=== PATIENT | male | born 1970 | race Caucasian/White ===

== ENCOUNTER 2019-11-19 13:34 | Emergency (ER) | payer OTHER, SELFPAY ==
[2019-11-19 13:42] VITALS: BP 147/96; PULSE 78; RESP 20; TEMP 36.7; O2SAT 99
--- NOTE | 2019-11-19 14:05 | ED.GENADULT ---
HPI - General Adult General Chief complaint: Eye Problems Stated complaint: left eye irritation Time Seen by Provider: 11/19/19 13:40 History of Present Illness HPI narrative: Patient is a 49-year-old male who presents ER with left eye redness. Reports yesterday he used using air to clean out a car. A friend then noticed his eye was red. He has no change in vision or hearing. No pain to his eye. No foreign body sensation. No clear or thick drainage. Does not wear corrective lenses or contacts. No additional concerns. Related Data Allergies Allergy/AdvReac Type Severity Reaction Status Date / Time ciprofloxacin [From Cipro] Allergy Anaphylactic Verified 07/23/19 10:07 Shock Penicillins Allergy Anaphylactic Verified 07/23/19 10:07 Shock Sulfa (Sulfonamide Allergy Swelling Verified 07/23/19 10:07 Antibiotics) Review of Systems Review of Systems: All systems reviewed & are unremarkable except as noted in HPI and below Eyes: Eyes: Denies blurry vision, Denies change in vision, Denies diplopia, Denies eye discharge, Denies irritation, Denies loss of vision and Denies eye pain PMFSH Past Medical History Medical History (Updated 11/19/19 @ 14:09 by Molina Giraldo MD) Arthritis Fibromyalgia Vertigo Surgical History Surgical History (Updated 07/23/19 @ 10:43 by Jose Wilson) No significant past surgical history Social History Social History (Updated 07/23/19 @ 10:43 by Jose Wilson) Smoking status: Never smoker Exam Narrative: Exam Narrative: GENERAL: Well-appearing, well-nourished, and in no acute distress. HEAD: Normocephalic, atraumatic. EYES: PERRLA and EOMI. left scleral subconjunctival hemorrhage abutting the lateral aspect of the cornea but no involvement of the cornea. Left eye viewed with magnification and fluorescein staining as well as tetracaine analgesia. There is no corneal abrasion or retained foreign body. ENT: Mucous membranes moist. NEURO: Alert and oriented x3. PSYCH: Normal mood and affect. Course Course Emergency Course: Discussed diagnosis. Discharge home. Patient is not on blood thinners. Vital Signs Vital signs: Vital Signs Temperature 98.0 F 11/19/19 13:42 Pulse Rate 78 11/19/19 13:42 Respiratory Rate 20 11/19/19 13:42 Blood Pressure 147/96 H 11/19/19 13:42 Pulse Oximetry 99 11/19/19 13:42 Temperature 98.0 F 11/19/19 13:42 Pulse Rate 78 11/19/19 13:42 Respiratory Rate 20 11/19/19 13:42 Blood Pressure 147/96 H 11/19/19 13:42 Pulse Oximetry 99 11/19/19 13:42 Medical Decision Making Vital Signs Vital Signs: Vital Signs Temperature 98.0 F 11/19/19 13:42 Pulse Rate 78 11/19/19 13:42 Respiratory Rate 20 11/19/19 13:42 Blood Pressure 147/96 H 11/19/19 13:42 Pulse Oximetry 99 11/19/19 13:42 Temperature 98.0 F 11/19/19 13:42 Pulse Rate 78 11/19/19 13:42 Respiratory Rate 20 11/19/19 13:42 Blood Pressure 147/96 H 11/19/19 13:42 Pulse Oximetry 99 11/19/19 13:42 Discharge Plan Discharge Clinical Impression: Subconjunctival hemorrhage Patient Disposition: Home, Self-Care Condition: Stable Instructions: Subconjunctival Hemorrhage (ED) Additional Instructions: Return to the ER if he cannot see, you have new trauma to your eye, you have other concerns. Follow-up/Referrals: PHYSICIAN,FORM CARPENTER [Primary Care Provider] -
== END 2019-11-19 14:16 | disposition home or self-care (01) ==
PROVIDERS: Emergency Provider Emergency Medicine
DX: H11.32 Conjunctival hemorrhage, left eye (principal); M19.90 Unspecified osteoarthritis, unspecified site; M79.7 Fibromyalgia
CPT/HCPCS: 99282; A9270

== ENCOUNTER 2020-10-22 18:46 | Emergency (ER) | payer OTHER, SELFPAY ==
[2020-10-22 18:51] VITALS: BP 168/84; PULSE 83; RESP 18; TEMP 36.6; O2SAT 96
[2020-10-22 19:37] VITALS: BP 158/98; PULSE 90; RESP 14; TEMP 37.1; O2SAT 100
[2020-10-22 19:50] VITALS: BP 160/92; PULSE 82; RESP 14; O2SAT 100
--- NOTE | 2020-10-22 20:02 | ED.BACK ---
HPI - Back Pain/Injury General Chief Complaint: Back Pain/Injury Stated Complaint: back pain Time Seen by Provider: 10/22/20 19:40 Source: patient Mode of arrival: ambulatory Limitations: no limitations History of Present Illness HPI Narrative: Patient is a 50-year-old male who presents to emergency department for evaluation of low back pain with history of chronic back pain patient is only taking ibuprofen for this and is currently looking for a new physician patient denies injury or trauma or illness and on arrival is otherwise resting comfortably in the room in no distress patient presents with normal gait Related Data Home Medications Medication Instructions Recorded Confirmed ibuprofen 10/22/20 meclizine mg 10/22/20 Allergies Allergy/AdvReac Type Severity Reaction Status Date / Time ciprofloxacin [From Cipro] Allergy Anaphylactic Verified 07/23/19 10:07 Shock Penicillins Allergy Anaphylactic Verified 07/23/19 10:07 Shock Sulfa (Sulfonamide Allergy Swelling Verified 07/23/19 10:07 Antibiotics) Review of Systems Review of Systems: All systems reviewed & are unremarkable except as noted in HPI and below PMFSH Past Medical History Medical History Arthritis Fibromyalgia Vertigo Surgical History Surgical History No significant past surgical history Social History Social History Smoking status: Never smoker Exam Narrative: Exam Narrative: GENERAL: Well-appearing, well-nourished, and in no acute distress. HEAD: Normocephalic, atraumatic. EYES: PERRLA and EOMI. ENT: Nares clear, no rhinorrhea or epistaxis. Mucous membranes moist. CHEST: Clear to auscultation. No respiratory distress. No wheezes rales or rhonchi HEART: Regular rate and rhythm. No murmur heard. Normal peripheral pulses. ABDOMEN: Soft, nontender, nondistended EXTREMITIES: Normal range of motion. No edema. Midline lumbar tenderness SKIN: Warm, dry, no rash. NEURO: No focal deficits. Alert and oriented x3. Motor and sensory intact and symmetrical in the lower extremities. Cranial nerves II through XII grossly intact PSYCH: Normal mood and affect. Course Course Emergency Course: Patient in the room no distress will be referred to primary care given resources for pain management will be managed medically ABCs and vital signs intact and stable. Patient felt appropriate for outpatient reevaluation Vital Signs Vital signs: Vital Signs Temperature 97.9 F 10/22/20 18:51 Pulse Rate 83 10/22/20 18:51 Respiratory Rate 18 10/22/20 18:51 Blood Pressure 168/84 H 10/22/20 18:51 Pulse Oximetry 96 10/22/20 18:51 Temperature 98.7 F 10/22/20 19:37 Pulse Rate 90 10/22/20 19:37 Respiratory Rate 14 10/22/20 19:37 Blood Pressure 158/98 H 10/22/20 19:37 Pulse Oximetry 100 10/22/20 19:37 MDM - Back Pain/Injury MDM Narrative Medical decision making narrative: Patients pain is positional in nature and localized to back without signs of cord compression or cauda equina based on neurological exam, skeletal exam and history. No fever or other significant factors to suggest osteomyelitis or spinal epidural abscess. No symptoms or signs to suggest pain is referred from abdominal or / cardiopulmonary sources. No pulsatile masses noted on exam. Patient ambulates with steady gait and is stable for outpatient management given case findings. Discharge Plan Discharge Clinical Impression: Acute low back pain Patient Disposition: Home, Self-Care Condition: Stable Instructions: Antibiotic Form, Acute Low Back Pain (ED) Additional Instructions: Medications as needed and prescribed. Limit lifting and bending. You may apply heat or cold to the area as needed. Follow up with your doctor for further care in the next 7 days. Con
--- NOTE | 2020-10-22 21:12 | PC.NURSE ---
pt refused toradol and lidocain pain medication. Stating i'd rather just get prescriptions from the pharmacy.
== END 2020-10-22 21:04 | disposition home or self-care (01) ==
PROVIDERS: Emergency Provider Emergency Medicine; PCP Family Medicine
DX: M54.5 Low back pain (principal); G89.29 Other chronic pain; M19.90 Unspecified osteoarthritis, unspecified site; M79.7 Fibromyalgia
CPT/HCPCS: 99283